=== PATIENT | male | born 1975 | race Caucasian/White ===

== ENCOUNTER 2017-09-03 23:10 | Emergency (ER) | payer SELFPAY ==
[~2017-09-03] VITALS: Ht 165.1 cm; Wt 95.0 kg
[~2017-09-03 23:10] MED LIST: CEFTRIAXONE SOD IM; CLIN-73 PO
[2017-09-03 23:57] VITALS: Ht 165.1 cm; Wt 95.0 kg
[2017-09-04] MEDS ORDERED: NAPR-260 PO (09:31)
[2017-09-04] MEDS ORDERED: CLIN-73 PO (09:31)
== END 2017-09-04 04:24 | disposition left against medical advice (07) ==
LOC: FTE 23:10
DX: Z53.21 Procedure and treatment not carried out due to patient leaving prior to being seen by health care provider (principal)

== ENCOUNTER 2017-09-04 04:43 | Emergency (ER) | payer MEDICAID, OTHER ==
[~2017-09-04] VITALS: Ht 165.1 cm; Wt 95.0 kg
[2017-09-04 04:45] VITALS: Ht 165.1 cm; Wt 95.0 kg
[2017-09-04] MEDS ORDERED: CLINDAMYCIN 900 MG INJ IVPB ONE (06:00)
[2017-09-04] MEDS ORDERED: CLINDAMYCIN 900 MG/D5W (PMX) 50 ML IVPB ONE (06:15)
--- NOTE | 2017-09-04 06:33 | ERD ---
ER Documentation Chief Complaint Chief Complaint bilateral arm and leg swelling due to drug use HPI This a 42-year-old male presents the emergency department today complaining of some left arm and hand swelling for the past couple of days. States he has other areas of abscesses. States he last injected heroin yesterday. States he has taken Bactrim and Keflex in the past. Denies any fevers or chills. ROS All systems reviewed and are negative except as per history of present illness. Medications Home Meds Active Scripts Clindamycin Hcl* (Clindamycin Hcl*) 300 Mg Capsule, 300 MG PO QID for 10 Days, CAP Prov:SUSIE CHAKRABORTY PA-C 09/04/17 Naproxen* (Naprosyn*) 500 Mg Tablet, 500 MG PO BID Y for PAIN AND/OR INFLAMMATION, #30 TAB Prov:SUSIE CHAKRABORTY PA-C 09/04/17 Clindamycin Hcl* (Clindamycin Hcl*) 300 Mg Capsule, 300 MG PO Q8, #21 CAP Prov:MARIAH ALEJANDRO MD 02/08/15 [Ceftriaxone Sod] 1 GM SOLN No Conflict Check, 1 GM IM DAILY, #5 VIAL Prov:MARIAH ALEJANDRO MD 02/08/15 Allergies Allergies: Coded Allergies: No Known Drug Allergy (Verified Allergy, Unknown, 02/07/15) PMhx/Soc History of Surgery: No Anesthesia Reaction: No (n/a) Hx Neurological Disorder: No Hx Respiratory Disorders: No (Hx of positive tb in 1986, tx for 1 year. 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 ) Hx Alcohol Use: Yes (1 time a week. 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 Neck: Full range of motion..~ No meningismus. Resp: Clear to auscultation bilaterally Cardio: Regular rate and rhythm, no murmurs Abd: Soft, non tender, non distended. Normal bowel sounds Skin: Multiple areas of abscesses that are firm and indurated bilateral arms and legs with scarring and with evidence of pyogenic granuloma right shoulder. Localized erythema left hand over posterior aspect of thumb Back: No midline or flank tenderness Ext: No cyanosis, or edema Neur: Awake and alert Psych: Normal Mood and Affect Results 24 hrs Current Medications Medications (Trade) Dose Ordered Sig/Jaci Route PRN Reason Start Time Stop Time Status Last Admin Dose Admin Clindamycin Phosphate 900 mg 900 mg ONCE ONCE IVPB 09/04/17 06:00 09/04/17 06:01 Cancel Clindamycin HCl/ Dextrose (Cleocin 900 Mg/ D5W (Pmx)) 50 ml @ 50 mls/hr ONCE ONCE IVPB 09/04/17 06:15 09/04/17 07:12 DC Clindamycin HCl (Cleocin) 600 mg ONCE ONCE PO 09/04/17 07:30 09/04/17 07:31 DC 09/04/17 07:30 Acetaminophen/ Hydrocodone Bitart (Corona (5/325)) 1 tab ONCE ONCE PO 09/04/17 07:30 09/04/17 07:31 DC 09/04/17 07:30 DIAGNOSTIC IMAGING REPORT Patient: TEJ RAMIREZ : 1975 Age: 42 Sex: M MR #: [id number] DOS: 09/04/17 0000 Ordering MD: SUSIE CHAKRABORTY PA-C Location: [facility] Room/Bed: PROCEDURE: US upper extremity Venous. CLINICAL INDICATION: Upper extremity swelling TECHNIQUE: Multiple sonographic images of the left upper extremity venous system was obtained utilizing joyner scale, color-flow, compressive sonography and doppler imaging with augmentation. COMPARISON: None FINDINGS: There is normal compressibility, phasicity and flow demonstrated within the left internal jugular vein, subclavian vein, axillary vein and brachial vein. Normal compressibility of the basilic and cephalic veins. IMPRESSION: No sonographic evidence for left upper extremity venous thrombosis. RPTAT:AAJJ Michaely Hepfer, Physician Date Time Electronically viewed and signed by Raymundo Manriquez Physician on 09/04/2017 09 :25 MH/ CC: SUSIE CHAKRABORTY PA-C Procedures/MDM This a 42-year-old male who presents the emergency department today for left arm swelling and some redness in multiple areas of abscesses. On review of patient's medical records patient was here at the emergency department yesterday but "fell asleep when they called his name" and was never seen and he left not being seen. On physical exam patient does have multiple areas on his bilateral legs and arms of scarring and chronic abscesses. The majority of them are firm and indurated with scabbing. He does have one area of pyogenic granuloma over his right shoulder. Patient is afebrile at this time. At this time there are no abscesses that are fluctuant and drainable. Given patient's complaints of swelling I did obtain a Doppler ultrasound. IV access was unable to be established and patient was given clindamycin p.o. Left upper extremity venous ultrasound is no sonographic evidence for left upper extremity venous thrombosis. Symptoms at this time is consistent with cellulitis and multiple abscesses. Patient was given Corona for pain the emergency department. He will be given a prescription for Naprosyn for home as well as clindamycin. I have instructed the patient that he does need to return in 48 hours for a wound check. Patient will be given a prescription for clindamycin for home. Low suspicion for sepsis. At this time the patient is stable for discharge and outpatient management. Patient should follow up with their PCP in the next 1-2 days. They may return to the emergency department sooner for any persistent or worsening of symptoms. Patient understood and agreed with the plan. Dr. Bartholomew has seen and evaluated the patient is in agreement with the plan Departure Diagnosis: Primary Impression: Cellulitis Site of cellulitis: extremity Site of cellulitis of extremity: upper extremity Laterality: left Qualified Code: L03.114 - Cellulitis of left upper extremity Additional Impression: Abscess Condition: Fair SUSIE CHAKRABORTY PA-C Sep 04, 2017 06:33
[2017-09-04] MEDS ORDERED: HYDROCODONE/APAP (5/325) TAB PO ONE (07:30)
[2017-09-04] MEDS ORDERED: CLINDAMYCIN 300 MG CAP PO ONE (07:30)
--- NOTE | 2017-09-04 09:26 | RADRPT ---
PROCEDURE: US upper extremity Venous. CLINICAL INDICATION: Upper extremity swelling TECHNIQUE: Multiple sonographic images of the left upper extremity venous system was obtained util izing joyner scale, color-flow, compressive sonography and doppler imaging with augmentation. COMPARISON: None FINDINGS: There is normal compressibility, phasicity and flow demonstrated within the left internal jugular ve in, subclavian vein, axillary vein and brachial vein. Normal compressibility of the basilic and ceph alic veins. IMPRESSION: No sonographic evidence for left upper extremity venous thrombosis. RPTAT:AAJJ Physician Vilma Date Time Electronically viewed and signed by Physician Vilma on 09/04/2017 09:25 /
[2017-09-04] MEDS ORDERED: NAPR-260 PO (09:31)
[2017-09-04] MEDS ORDERED: CLIN-73 PO (09:31)
[2017-09-04 09:41] VITALS: BP 127/75; PULSE 67; RESP 18; TEMP 98
== END 2017-09-04 09:42 | disposition home or self-care (01) ==
LOC: FTE 04:43
DX: L03.114 Cellulitis of left upper limb (principal); L02.414 Cutaneous abscess of left upper limb; F17.210 Nicotine dependence, cigarettes, uncomplicated
CPT/HCPCS: 93971; Z7502; Z7610

== ENCOUNTER 2017-10-16 22:15 | Emergency (ER) | END 2017-10-17 02:47 | disposition left against medical advice (07) ==

== ENCOUNTER 2018-11-03 02:03 | Emergency (ER) | payer OTHER ==
[~2018-11-03] VITALS: Ht 160 cm; Wt 81.3 kg
[~2018-11-03 02:03] MED LIST changes: -CLIN-73 PO; +CLIN300C10 PO; +NAPR-985 PO
[2018-11-03 02:04] VITALS: Ht 160 cm; Wt 81.3 kg
--- NOTE | 2018-11-03 03:05 | ERD ---
ER Documentation Chief Complaint Chief Complaint WAS IN KP; SKIN ISSUE, LEFT SIDE FACE; KP SAID "SOMETHING FOUND IN BLOOD" HPI This is a 43-year-old gentleman who presents to the emergency room for multiple issues. He states that he has had several days of a rash that is slightly painful to the left side of his face and upper neck. Patient states that he went to [facility] and they "found something in my blood and wanted to admit me ". He thinks that it was renal insufficiency. Patient denies any fevers or chills. No vision changes. ROS All systems reviewed and are negative except as per history of present illness. Medications Home Meds Active Scripts Ibuprofen* (Motrin*) 800 Mg Tab, 800 MG PO Q6H PRN for PAIN AND OR ELEVATED TEMP, #30 TAB Prov:GIACOMO COTO MD 11/03/18 Acyclovir* (Zovirax*) 800 Mg Tablet, 800 MG PO 5 TIMES DAILY for 7 Days, TAB Prov:GIACOMO COTO MD 11/03/18 Clindamycin Hcl* (Clindamycin Hcl*) 300 Mg Capsule, 300 MG PO QID for 10 Days, CAP Prov:SUSIE CHAKRABORTY PA-C 09/04/17 Naproxen* (Naprosyn*) 500 Mg Tablet, 500 MG PO BID PRN for PAIN AND/OR INFLAMMA TION, #30 TAB Prov:SUSIE CHAKRABORTY PA-C 09/04/17 Clindamycin Hcl* (Clindamycin Hcl*) 300 Mg Capsule, 300 MG PO Q8, #21 CAP Prov:MARIAH ALEJANDRO MD 02/08/15 [Ceftriaxone Sod] 1 GM SOLN No Conflict Check, 1 GM IM DAILY, #5 VIAL Prov:MARIAH ALEJANDRO MD 02/08/15 Allergies Allergies: Coded Allergies: No Known Drug Allergy (Verified Allergy, Unknown, 10/28/17) PMhx/Soc History of Surgery: No Anesthesia Reaction: No (n/a) Hx Neurological Disorder: No Hx Respiratory Disorders: No (Hx of positive tb in 1986, tx for 1 year. 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 ) Hx Alcohol Use: Yes (1 time a week. ) Hx Substance Use: Yes (IV heroin, methamphetamine) Hx Tobacco Use: Yes Smoking Status: Current every day smoker FmHx Family History: No diabetes Physical Exam Vitals Vital Signs Date Temp Pulse Resp B/P (MAP) Pulse Ox O2 O2 Flow FiO2 Time Delivery Rate 11/03/18 98.5 112 19 148/86 100 02:04 (106) Physical Exam General: Well developed, well nourished, no acute distress Head: Normocephalic, atraumatic. Eyes: Pupils equally reactive, EOM intact ENT: Moist mucous membranes Neck: Supple, no lymphadenopathy Respiratory: Lungs clear bilaterally, no distress Cardiovascular: RRR, no murmurs, rubs, or gallops Abdominal: Soft, non-tender, non-distended, no peritoneal signs : Deferred MSK: No edema, no unilateral swelling, 5/5 strength Neurologic: Alert and oriented, moving all extremities, normal speech, no focal weakness, no cerebellar signs Skin: The patient has a vesicular rash on the left side of his face that does not cross the midline in a V2 distribution. The patient also has a small amount of rash and a possible mandibular portion of the trigeminal nerve. No lesions in the ear canal or tip of the nose. Psych: Normal mood Result Diagram: 11/03/18 0405 11/03/18 0405 Results 24 hrs Laboratory Tests Test 11/03/18 04:05 White Blood Count 6.9 10^3/ul Red Blood Count 4.41 10^6/ul Hemoglobin 11.1 g/dl Hematocrit 35.2 % Mean Corpuscular Volume 79.8 fl Mean Corpuscular Hemoglobin 25.2 pg Mean Corpuscular Hemoglobin Concent 31.5 g/dl Red Cell Distribution Width 14.1 % Platelet Count 345 10^3/UL Mean Platelet Volume 8.5 fl Immature Granulocytes % 0.300 % Neutrophils % 62.5 % Lymphocytes % 24.9 % Monocytes % 8.1 % Eosinophils % 3.6 % Basophils % 0.6 % Nucleated Red Blood Cells % 0.0 /100WBC Immature Granulocytes # 0.020 10^3/ul Neutrophils # 4.3 10^3/ul Lymphocytes # 1.7 10^3/ul Monocytes # 0.6 10^3/ul Eosinophils # 0.3 10^3/ul Basophils # 0.0 10^3/ul Nucleated Red Blood Cells # 0.0 10^3/ul Sodium Level 138 mmol/L Potassium Level 4.5 mmol/L Chloride Level 101 mmol/L Carbon Dioxide Level 27 mmol/L Anion Gap 10 Blood Urea Nitrogen 27 mg/dl Creatinine 1.11 mg/dl Est Glomerular Filtrat Rate mL/min > 60 mL/min Glucose Level 120 mg/dl Calcium Level 9.4 mg/dl Procedures/MDM LAB INTERPRETATION: * CBC reveals no evidence of infectious process, chemistry profile shows no renal insufficiency PROCEDURE: Peripheral IV Insertion: Indication: Difficult IV access Location: Left antecubital fossa Attempts: 1 Angiocath-type: 18 The patient was consented prior to procedure and states understanding of risks, benefits, alternatives. Verbal consent was provided Sterile procedure was used to insert a peripheral IV. Indication, location and Angiocath-type are noted above. Ultrasound guidance was used to assist in the insertion of the Angiocath. Return of dark nonpulsatile blood was obtained, normal saline flushed through the Angiocath which was then secured to the skin. The patient tolerated the procedure well without complications. Emergency Bedside Ultrasound: The patient was verbally consented prior to procedure and understands the risks, benefits, and alternatives. The patient is agreeable to procedure and has given verbal consent. Indication: Peripheral IV insertion Probe Type: Linear Findings: Dynamic ultrasound utilized with compression technique with both linear and horizontal views. The images were printed off and placed on a paper document that will be scanned into the chart. The patient tolerated the procedure well and there were no complications. MEDICAL DECISION MAKING: The patient is clinical, uncomplicated shingles. Shingles are mostly in a C2 dermatomal distribution on the left side that did not cross the midline. The patient also has a couple of lesions or location of the trigeminal nerve. However, no evidence of systemic disease. No evidence of involvement of the ear canal, tympanic membrane or nose or ocular region. The patient appears to have been told that he has renal insufficiency but he does not know the results. Patient has very limited information. Laboratory testing would be indicated. Shingles are uncomplicated and can be likely treated with oral medication on an outpatient basis. ER COURSE: * The labs are reassuring. At this point is unclear what was abnormal. The patient states that it was his kidneys. They give him IV fluids. The patient likely has correction of acute kidney injury. The patient can be safely discharged. CONSULTATION: None DISPOSITION PLAN: The patient does not have an identifiable emergent medical condition that warrants inpatient hospitalization at this time. The patient is deemed safe for discharge with outpatient follow-up. We discussed follow up with the patient's primary care doctor within 24 to 48 hours as needed. We also discussed return to the emergency room for worsening symptoms or worsening condition. Outpatient referral: None required Discharge Medications: Acyclovir Departure Diagnosis: Primary Impression: Shingles Herpes zoster complications: without complications Qualified Codes: B02.9 - Zoster without complications Additional Impression: Encounter for laboratory test Condition: GIACOMO Haji MD Nov 03, 2018 03:05
[2018-11-03] MEDS ORDERED: IBUP800T48 PO (04:52)
[2018-11-03] MEDS ORDERED: ACYC800T5 PO (04:52)
[2018-11-03 05:11] VITALS: BP 139/85; PULSE 98; RESP 16
== END 2018-11-03 05:14 | disposition home or self-care (01) ==
LOC: E/R 02:03
DX: B02.9 Zoster without complications (principal); F17.210 Nicotine dependence, cigarettes, uncomplicated
CPT/HCPCS: 36415; 80048; 85025; Z7502; 99283

== ENCOUNTER 2019-02-19 22:53 | Emergency (ER) | payer SELFPAY ==
[~2019-02-19] VITALS: Ht 154.9 cm; Wt 81.7 kg
[~2019-02-19 22:53] MED LIST changes: +ACYC800T5 PO; +IBUP800T48 PO
[2019-02-19 23:07] VITALS: PULSE 98; RESP 19; Ht 154.9 cm; Wt 81.7 kg
[2019-02-20] MEDS ORDERED: ELIM TOP (02:02)
[2019-02-20 02:19] VITALS: BP 140/81
--- NOTE | 2019-02-20 02:23 | ERD ---
ER Documentation Chief Complaint Chief Complaint STATES OPEN WOUND TO RT OUTTER THIGH X1 WEEK HPI History of Present Illness: 44-year-old male with past medical history of heroin use coming today with complaint of wound to the right present for 1 year. Patient reports he had an abscess drained at [facility] approximately 1 year ago. Patient reports that he keep wound clean and is currently covered with a dressing and tape. Patient reports skin popping with heroin, reports he is running into rehab so he has not been doing it currently. At home pharmacological/nonpharmacological treatment for symptoms: Denies Denies social concerns; Denies recent foreign travel ROS All systems reviewed and are negative except as per history of present illness. Medications Home Meds Active Scripts Permethrin* (Elimite*) 5% Cr, 1 APPLIC TOP ONCE, #2 TUB Repeat medication 1 week after initial use of first dose of medication. Prov:YONAS GARLAND NP 02/20/19 Ibuprofen* (Motrin*) 800 Mg Tab, 800 MG PO Q6H PRN for PAIN AND OR ELEVATED TEMP, #30 TAB Prov:GIACOMO COTO MD 11/03/18 Acyclovir* (Zovirax*) 800 Mg Tablet, 800 MG PO 5 TIMES DAILY for 7 Days, TAB Prov:GIACOMO COTO MD 11/03/18 Clindamycin Hcl* (Clindamycin Hcl*) 300 Mg Capsule, 300 MG PO QID for 10 Days, CAP Prov:SUSIE CHAKRABORTY PA-C 09/04/17 Naproxen* (Naprosyn*) 500 Mg Tablet, 500 MG PO BID PRN for PAIN AND/OR INFLAMMATION, #30 TAB Prov:SUSIE CHAKRABORTY PA-C 09/04/17 Clindamycin Hcl* (Clindamycin Hcl*) 300 Mg Capsule, 300 MG PO Q8, #21 CAP Prov:MARIAH ALEJANDRO MD 02/08/15 [Ceftriaxone Sod] 1 GM SOLN No Conflict Check, 1 GM IM DAILY, #5 VIAL Prov:MARIAH ALEJANDRO MD 02/08/15 Allergies Allergies: Coded Allergies: No Known Drug Allergy (Verified Allergy, Unknown, 10/28/17) PMhx/Soc History of Surgery: No Anesthesia Reaction: No (n/a) Hx Neurological Disorder: No Hx Respiratory Disorders: No (Hx of positive tb in 1986, tx for 1 year. 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 ) Hx Alcohol Use: Yes (1 time a week. ) Hx Substance Use: Yes (IV heroin, methamphetamine) Hx Tobacco Use: Yes Smoking Status: Current every day smoker FmHx Family History: diabetes Physical Exam Vitals Vital Signs Date Temp Pulse Resp B/P (MAP) Pulse Ox O2 O2 Flow FiO2 Time Delivery Rate 02/19/19 97.9 98 19 159/90 98 23:07 (113) Physical Exam Const: No acute distress Head: Atraumatic Eyes: Normal Conjunctiva ENT: Normal External Ears, Nose and Mouth. Neck: Full range of motion. No meningismus. Resp: Clear to auscultation bilaterally Cardio: Regular rate and rhythm, no murmurs Abd: Soft, non tender, non distended. Normal bowel sounds Skin: No petechiae or rashes; many wounds noted to extremities patient has used her with her skin popping, dark. Healing abscess noted to right outer thigh, no fluctuance, no erythema, no warmth, no purulent drainage. Scar tissue noted to left outer thigh, fibrous tissue, no fluctuance, no erythema, no warmth, no purulent drainage, no tenderness to palpation. Back: No midline or flank tenderness Ext: No cyanosis, or edema Neur: Awake and alert Psych: Normal Mood and Affect Procedures/MDM ED course includes a thorough examination and history. Low suspicion for life-threatening medical emergency. Low suspicion for infectious process that requires antibiotics at this time. Patient with possible scabies exposure, reports itching all over his body. Will prophylactically treat for scabies with permethrin. Otherwise healthy patient presenting with constellation of symptoms likely representing encounter for wound recheck, exposure to scabies, as characterized by history, physical exam findings. dR. Aguirre to bedside to evaluate patient, agrees with plan of care. Patient reassessment 0217: Patient hemodynamically stable. No respiratory distress, otherwise relatively well appearing and nontoxic. Disposition given. Patient educated on diagnoses, prescriptions, follow-up care, return precautions. Strict return precautions given for worsening condition; questions answered discharge. Disposition for discharge with followup in 2 days with PCP/clinic. Patient reports that he will have an appointment soon with wound care for his wounds. Departure Diagnosis: Primary Impression: Encounter for wound re-check Additional Impression: Exposure to scabies Condition: Stable Patient Instructions: Scabies Referrals: [facility] YOU HAVE RECEIVED A MEDICAL SCREENING EXAM AND THE RESULTS INDICATE THAT YOU DO NOT HAVE A CONDITION THAT REQUIRES URGENT TREATMENT IN THE EMERGENCY DEPARTMENT. FURTHER EVALUATION AND TREATMENT OF YOUR CONDITION CAN WAIT UNTIL YOU ARE SEEN IN YOUR DOCTORS OFFICE WITHIN THE NEXT 1-2 DAYS. IT IS YOUR RESPONSIBILITY TO MAKE AN APPOINTMENT FOR FOLOW-UP CARE. IF YOU HAVE A PRIMARY DOCTOR --you should call your primary doctor and schedule an appointment IF YOU DO NOT HAVE A PRIMARY DOCTOR YOU CAN CALL OUR PHYSICIAN REFERRAL HOTLINE AT IF YOU CAN NOT AFFORD TO SEE A PHYSICIAN YOU CAN CHOSE FROM THE FOLLOWING [facility] [address] [facility]. [facility] [address] [facility] [facility] [address] [facility] [address] [facility] [facility] [address] [facility]. [facility] [address] [facility] [facility] YOU HAVE RECEIVED A MEDICAL SCREENING EXAM AND THE RESULTS INDICATE THAT YOU DO NOT HAVE A CONDITION THAT REQUIRES URGENT TREATMENT IN THE EMERGENCY DEPARTMENT. FURTHER EVALUATION AND TREATMENT OF YOUR CONDITION CAN WAIT UNTIL YOU ARE SEEN IN YOUR DOCTORS OFFICE WITHIN THE NEXT 1-2 DAYS. IT IS YOUR RESPONSIBILITY TO MAKE AN APPOINTMENT FOR FOLOW-UP CARE. IF YOU HAVE A PRIMARY DOCTOR --you should call your primary doctor and schedule and appointment IF YOU DO NOT HAVE A PRIMARY DOCTOR YOU CAN CALL OUR PHYSICIAN REFERRAL HOTLINE AT . IF YOU CAN NOT AFFORD TO SEE A PHYSICIAN YOU CAN CHOSE FROM THE FOLLOWING [facility] INSTITUTIONS: [facility] [address] [place] [address] [facility] [address] [place] [address] [facility] [address] [place] [address] Additional Instructions: Thank you very much for allowing us to participate in your care. Your health and safety is our top priority at [facility]. It is important to read all discharge instructions and education provided in your discharge packet. *Currently, you did not have any signs of infection. There are no need for antibiotics at this time. There are no abscesses that need to be drained at this time.* Call your primary care doctor TOMORROW for an appointment during the next 2-4 days and bring all the information and medications prescribed. Have prescriptions filled and follow precisely the directions on the label. If the symptoms get worse and your provider is unavailable, return to the Emergency Department immediately. YONAS GARLAND NP February 20, 2019 02:23
== END 2019-02-20 02:20 | disposition home or self-care (01) ==
LOC: FTE 22:53
DX: Z48.01 Encounter for change or removal of surgical wound dressing (principal); F17.210 Nicotine dependence, cigarettes, uncomplicated; Z20.7 Contact with and (suspected) exposure to pediculosis, acariasis and other infestations
CPT/HCPCS: 99282

== ENCOUNTER 2019-06-05 21:32 | Emergency (ER) | payer SELFPAY ==
[~2019-06-05] VITALS: Ht 165.1 cm; Wt 78.9 kg
[~2019-06-05 21:32] MED LIST changes: +CEPH-443 PO; +ELIM TOP; +IBUP-1542 PO; +SULF1TAB31 PO
[2019-06-05 21:37] VITALS: BP 226/116; PULSE 112; RESP 20; Ht 165.1 cm; Wt 78.9 kg
== END 2019-06-05 23:02 | disposition home or self-care (01) ==
LOC: E/R 21:32
DX: L02.414 Cutaneous abscess of left upper limb (principal); L03.115 Cellulitis of right lower limb; L03.116 Cellulitis of left lower limb; Z87.891 Personal history of nicotine dependence
CPT/HCPCS: 99283

== ENCOUNTER 2019-06-26 21:59 | Emergency (ER) | payer SELFPAY | END 2019-06-27 05:05 | disposition left against medical advice (07) | LOC: E/R 21:59 | DX: Z53.21 Procedure and treatment not carried out due to patient leaving prior to being seen by health care provider (principal) ==